=== PATIENT | male | born 1935 | race Caucasian/White ===

== ENCOUNTER → 2016-08-21 | Outpatient (CLI) | payer MEDICARE, OTHER | END | disposition home or self-care (01) | LOC: GT 08:27 | PROVIDERS: ATTEND Internal Medicine | DX: E11.9 Type 2 diabetes mellitus without complications (principal); D51.9 Vitamin B12 deficiency anemia, unspecified; N18.9 Chronic kidney disease, unspecified ==

== ENCOUNTER 2016-08-24 18:08 | Inpatient (IN) | payer MEDICARE, OTHER ==
[2016-08-24] MEDS ORDERED: SODIUM CHLORIDE 0.9% 1000ML 1,000 ML IVS ONE (18:29)
--- NOTE | 2016-08-24 18:32 | ED.PDOC ---
History of Present Illness - General Source: RN notes reviewed, Vital Signs reviewed, EMS notes reviewed, family, [facility] Exam Limitations: clinical condition - History of Present Illness Initial Comments: Per patient c/o SOB to nurse [facility]. EMS suctioned him and gave Zofran and he seems better. 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 Timing/Duration: 1 hour Severity: moderate Activities at Onset: rest Possible Cause: unknown cause - ? aspiration Improving Factors: medication, other - suctioning Worsening Factors: nothing Associated Symptoms: denies symptoms Respiratory Risk Factors: other - deteriorating respiratory frunction <Norma Valencia - Last Filed: 08/24/16 18:41> <Kerrie Jacques - Last Filed: 08/24/16 21:30> - General Chief Complaint: Respiratory Problem Stated Complaint: SOB Time Seen by Provider: 08/24/16 18:29 - History of Present Illness Allergies/Adverse Reactions: Allergies NO KNOWN ALLERGY Allergy (Verified 08/24/16 18:53) Home Medications: Ambulatory Orders Allopurinol [Zyloprim] 100 mg PO DAILY 09/27/15 Carvedilol 12.5 mg PO BID 09/27/15 Clopidogrel Bisulfate [Plavix] 75 mg PO 1700 09/27/15 Cyanocobalamin [Vitamin B12] 500 mcg PO DAILY 09/27/15 Donepezil Hydrochloride [Aricept] 10 mg PO BEDTIME 09/27/15 Ezetimibe [Zetia] 10 mg PO DAILY 09/27/15 Ferrous Sulfate [Iron] 65 mg PO BID 09/27/15 Finasteride 5 mg PO DAILY 09/27/15 Furosemide [Lasix] 40 mg PO BID 09/27/15 Hydrochlorothiazide 12.5 mg PO DAILY 09/27/15 Isosorbide Mononitrate 10 mg PO DAILY 09/27/15 Levothyroxine Sodium 25 mcg PO DAILY 09/27/15 Magnesium Oxide 800 mg PO BID 09/27/15 Memantine HCl [Namenda] 10 mg PO BID 09/27/15 Mirtazapine [Remeron] 15 mg PO BEDTIME 09/27/15 Multiple Vitamins W/ Iron [Multi-Vitamins/Iron] 1 tab PO DAILY 09/27/15 Pantoprazole Sodium [Protonix] 40 mg PO DAILY 09/27/15 Potassium Chloride Elixir [Kaochlor Liquid] 30 ml PO DAILY 09/27/15 Simvastatin 40 mg PO BEDTIME 09/27/15 Spironolactone 50 mg PO DAILY 09/27/15 busPIRone HCL [Buspar] 5 mg PO TID 09/27/15 Glipizide 5 mg PO BID 09/29/15 Linagliptin [Tradjenta] 5 mg PO DAILY 09/29/15 Insulin Glargine [Lantus Solostar] 20 unit SC DAILY #1 09/30/15 Insulin Lispro [Humalog] See Protocol SUBCU ACHS #1 pen 09/30/15 HYDROcodone 7.5MG/APAP 325MG [[place] 7.5/325] 1 - 2 tab PO Q6H PRN 12/01/15 Polyethylene Glycol 3350 [Miralax] 17 gm PO DAILY 12/01/15 Sulindac 200 mg PO BID #20 tab 12/01/15 Review of Systems - Review of Systems Constitutional: States: malaise, weakness. Denies: chills, diaphoresis, fever EENTM: States: no symptoms reported Respiratory: States: see HPI, cough, short of breath. Denies: orthopnea, stridor, wheezing Cardiology: States: no symptoms reported. Denies: chest pain Gastrointestinal/Abdominal: States: nausea. Denies: abdominal pain, constipation, diarrhea, vomiting Genitourinary: States: no symptoms reported Musculoskeletal: States: no symptoms reported Skin: States: no symptoms reported Neurological: States: other - decreased alertness and altered mental status for several weeks. Endocrine: States: no symptoms reported Hematologic/Lymphatic: States: no symptoms reported <Norma Valencia - Last Filed: 08/24/16 18:41> Past Medical History (General) - Patient Medical History Hx Seizures: No Hx Stroke: No Hx Dementia: Yes Hx Cardiac Disorders: Yes - [place] Hx Congestive Heart Failure: No Hx Pacemaker: No Hx Hypertension: Yes Hx Diabetes: Yes Hx Gastroesophageal Reflux: Yes Hx MRSA: No - Vaccination History Hx Influenza Vaccination: Yes - 2015 - Social History Hx Tobacco Use: Yes Hx Alcohol Use: No Hx Substance Use: No Hx Physical Abuse: No Hx Emotional Abuse: No <Norma Valencia - Last Filed: 08/24/16 18:41> Family Medical History - Family History Father Living Status: Hx Cardiac Disease: Yes - [place] <Norma Valencia - Last Filed: 08/24/16 18:41> Physical Exam - Physical Exam General Appearance: Emaciated, Frail, No apparent distress, Lethargic Neck: non-tender, full range of motion, supple, normal inspection Respiratory: no respiratory distress, no accessory muscle use, decreased breath sounds - throughout, other - Palpable mass R upper chest Cardiovascular/Chest: regular rate, rhythm, no edema, no gallop, no JVD, no murmur Peripheral Pulses: dorsalis pedis,right: 1+, dorsalis pedis,left: 1+ Gastrointestinal/Abdominal: normal bowel sounds, non tender, soft, no organomegaly, no pulsatile mass Extremity: normal inspection, no pedal edema Neurologic: disoriented x 3 Skin Exam: normal color, warm/dry <Norma Valencia - Last Filed: 08/24/16 18:41> Progress - Progress Progress: 08/24/16 18:41 Discussed situation with and daughter. Will do labs to look for an acute fixable problem but they do not want a chest CT or heroic measures. <Norma Valencia - Last Filed: 08/24/16 18:41> - Progress Progress: 08/24/16 20:34 I discussed Patient's UTI and hypercalcemia with Patient's and daughter. I suggested admission for treatment of the UTI and hypercalcemia with referral to hospice at some point. They agree with the plan. Dr. Fitch was called and we discussed Patient's treatment. We will get a CXR so that we can see where Patient stands with the lung mass. Will initially treat him with Rocephin after blood cultures drawn and fluids. Patient was given some ativan because he is very restless and I believe it will help this along with the SOB. - Results/Orders Results/Orders: 08/24/16 08/24/16 08/24/16 18:10 18:53 19:08 Temperature 96.8 F L Pulse Rate [ 92 H 100 H 100 H Left Radial] Respiratory 20 20 20 Rate Blood Pressure 109/76 116/64 108/47 [Left Arm] O2 Sat by Pulse 87 L 92 L 92 L Oximetry 08/24/16 08/24/16 20:00 20:18 Temperature 96.8 F L Pulse Rate [ 85 85 Left Radial] Respiratory 20 20 Rate Blood Pressure 138/85 138/85 [Left Arm] O2 Sat by Pulse 92 L 92 L Oximetry 08/24/16 18:00 B-TYPE NATRIURETIC PEPTIDE/BNP Stat MAGNESIUM Stat PHOSPHOROUS Stat 08/24/16 19:35 URINE CULTURE W/COLONY COUNT Stat 08/24/16 20:23 LACTIC ACID Stat cefTRIAXone SODIUM [Rocephin] 1 gm Sodium Chl 0.9% 50Ml Min-Bag+ [NS 50ml MINI -BAG+] 50 ml IVPB ONCE BLOOD CULTURE Stat 08/24/16 20:33 Sodium Chl 0.9% 50Ml Min-Bag+ [NS 50ml MINI-BAG+] 50 ml IVPB .STK-MED 08/24/16 19:35 URINE CULTURE W/COLONY COUNT Stat 08/24/16 20:40 BLOOD CULTURE Stat 08/24/16 21:16 KCl 20 Meq/Ns [NS W/ KCL 20 meq/Liter] 1,000 ml IVS ONCE Laboratory Results WBC 18.9 K/mm3 (4.8-10.8) H 08/24/16 18:00 RBC 5.88 M/mm3 (4.70-6.10) 08/24/16 18:00 Hgb 16.3 gm/dL (14.0-18.0) 08/24/16 18:00 Hct 50.9 % (42.0-52.0) 08/24/16 18:00 MCV 86.6 fl (80.0-94.0) 08/24/16 18:00 MCH 27.7 pg (27.0-31.0) 08/24/16 18:00 MCHC 32.0 g/dL (33.0-37.0) L 08/24/16 18:00 RDW 14.8 % (11.5-14.5) H 08/24/16 18:00 Plt Count 295 K/mm3 (130-400) 08/24/16 18:00 MPV 7.6 fl (7.40-10.4) 08/24/16 18:00 Absolute Neuts (auto) 15.30 K/uL (1.8-6.8) H 08/24/16 18:00 Absolute Lymphs (auto) 1.60 K/uL (1.0-3.4) 08/24/16 18:00 Absolute Monos (auto) 1.90 K/uL (0.2-0.8) H 08/24/16 18:00 Absolute Eos (auto) 0.00 K/uL (0.0-0.4) 08/24/16 18:00 Absolute Basos (auto) 0.00 K/uL (0.0-0.1) 08/24/16 18:00 Neutrophils % 81.1 % (42.0-78.0) H 08/24/16 18:00 Lymphocytes % 8.7 % (20.0-50.0) L 08/24/16 18:00 Monocytes % 9.9 % (2.0-9.0) H 08/24/16 18:00 Eosinophils % 0.1 % (1.0-5.0) L 08/24/16 18:00 Basophils % 0.2 % (0.0-2.0) 08/24/16 18:00 Sodium 155 mmol/L (135-145) H 08/24/16 20:40 Potassium 3.4 mmol/L (3.6-5.0) L 08/24/16 20:40 Chloride 110 mmol/L (101-111) 08/24/16 20:40 Carbon Dioxide 30 mmol/L (21-31) 08/24/16 20:40 Anion Gap 18.4 (12-18) H 08/24/16 20:40 BUN 98 mg/dL (7-18) H 08/24/16 20:40 Creatinine 2.58 mg/dL (0.6-1.3) H 08/24/16 20:40 BUN/Creatinine Ratio 38.0 (10-20) H 08/24/16 20:40 Random Glucose 149 mg/dL (70-105) H 08/24/16 20:40 Serum Osmolality 340.6 mOsm/L (275-295) H* 08/24/16 20:40 Lactic Acid 2.9 mmol/L (0.5-2.2) H* 08/24/16 20:40 Calcium 14.9 mg/dL (8.4-10.2) H* 08/24/16 20:40 Phosphorus 5.3 mg/dL (2.5-4.6) H 08/24/16 18:00 Magnesium 2.4 mg/dL (1.8-2.5) 08/24/16 18:00 Total Bilirubin 1.6 mg/dL (0.2-1.0) H 08/24/16 18:00 AST 22 IU/L (10-42) 08/24/16 18:00 ALT 17 IU/L (10-60) 08/24/16 18:00 Alkaline Phosphatase 90 IU/L (42-121) 08/24/16 18:00 B-Natriuretic Peptide 190.0 pg/ml (0-100) H 08/24/16 18:00 Serum Total Protein 8.5 gm/dL (6.4-8.2) H 08/24/16 18:00 Albumin 3.9 g/dl (3.2-5.5) 08/24/16 18:00 Globulin 4.6 gm/dL (2.3-3.5) H 08/24/16 18:00 Albumin/Globulin Ratio 0.8 (1.1-1.9) L 08/24/16 18:00 Urine Color Yellow (Yellow) 08/24/16 19:35 Urine Appearance Turbid (Clear) 08/24/16 19:35 Urine pH 5.0 (4.5-7.8) 08/24/16 19:35 Ur Specific [place] 1.025 (1.005-1.030) 08/24/16 19:35 Urine Protein Trace mg/dL 08/24/16 19:35 Urine Glucose (UA) Negative mg/dL (Negative) 08/24/16 19:35 Urine Ketones Negative mg/dL (NEGATIVE) 08/24/16 19:35 Urine Blood Moderate (Negative) H 08/24/16 19:35 Urine Nitrite Negative 08/24/16 19:35 Urine Bilirubin Small (NEGATIVE) H 08/24/16 19:35 Urine Urobilinogen 1.0 mg/dL (0.2-1.0) 08/24/16 19:35 Ur Leukocyte Esterase Large (Negative) H 08/24/16 19:35 Urine RBC Obscured by wbc's /hpf H 08/24/16 19:35 Urine WBC Tntc /hpf H 08/24/16 19:35 Ur Epithelial Cells Obscured by wbc's /hpf 08/24/16 19:35 Urine Bacteria Obscured by wbc's H 08/24/16 19:35 Chest x-ray: 1. Enlarging mass density, right upper lobe and apex with increased pleural thickening. No definite posterior right rib destruction. Correlate with history and interval lung imaging since September 2015. Cannot exclude underlying infectious process. Chronic bilateral lung interstitial process. Improved volume in the left lung. 2. Cardiomegaly but pulmonary vascularity is not congested. <Kerrie Jacques - Last Filed: 08/24/16 21:30> Departure <Norma Valencia - Last Filed: 08/24/16 18:41> - Departure Time of Disposition: 21:29 <Kerrie Jacques - Last Filed: 08/24/16 21:30> - Departure Clinical Impression: Dehydration, moderate, Hypercalcemia, Hypernatremia, Lung mass, Renal insufficiency Urinary tract infection Qualifiers: Urinary tract infection type: site unspecified Hematuria presence: with hematuria Qualifier Code: (N39.0) Urinary tract infection, site not specified Disposition: Admit Patient Condition: Poor Departure Forms: ED Discharge - Pt. Copy, Patient Portal Self Enrollment Home Medications: Ambulatory Orders Allopurinol [Zyloprim] 100 mg PO DAILY 09/27/15 Carvedilol 12.5 mg PO BID 09/27/15 Clopidogrel Bisulfate [Plavix] 75 mg PO 1700 09/27/15 Cyanocobalamin [Vitamin B12] 500 mcg PO DAILY 09/27/15 Donepezil Hydrochloride [Aricept] 10 mg PO BEDTIME 09/27/15 Ezetimibe [Zetia] 10 mg PO DAILY 09/27/15 Ferrous Sulfate [Iron] 65 mg PO BID 09/27/15 Finasteride 5 mg PO DAILY 09/27/15 Furosemide [Lasix] 40 mg PO BID 09/27/15 Hydrochlorothiazide 12.5 mg PO DAILY 09/27/15 Isosorbide Mononitrate 10 mg PO DAILY 09/27/15 Levothyroxine Sodium 25 mcg PO DAILY 09/27/15 Magnesium Oxide 800 mg PO BID 09/27/15 Memantine HCl [Namenda] 10 mg PO BID 09/27/15 Mirtazapine [Remeron] 15 mg PO BEDTIME 09/27/15 Multiple Vitamins W/ Iron [Multi-Vitamins/Iron] 1 tab PO DAILY 09/27/15 Pantoprazole Sodium [Protonix] 40 mg PO DAILY 09/27/15 Potassium Chloride Elixir [Kaochlor Liquid] 30 ml PO DAILY 09/27/15 Simvastatin 40 mg PO BEDTIME 09/27/15 Spironolactone 50 mg PO DAILY 09/27/15 busPIRone HCL [Buspar] 5 mg PO TID 09/27/15 Glipizide 5 mg PO BID 09/29/15 Linagliptin [Tradjenta] 5 mg PO DAILY 09/29/15 Insulin Glargine [Lantus Solostar] 20 unit SC DAILY #1 09/30/15 Insulin Lispro [Humalog] See Protocol SUBCU ACHS #1 pen 09/30/15 HYDROcodone 7.5MG/APAP 325MG [[place] 7.5/325] 1 - 2 tab PO Q6H PRN 12/01/15 Polyethylene Glycol 3350 [Miralax] 17 gm PO DAILY 12/01/15 Sulindac 200 mg PO BID #20 tab 12/01/15 Decision To Admit - Decistion To Admit Decision to Admit Date: 08/24/16 Decision to Admit Time: 20:32 <Kerrie Jacques - Last Filed: 08/24/16 21:30>
[2016-08-24] MEDS ORDERED: cefTRIAXone SODIUM 1 GM in SODIUM CHL 0.9% 50ML MIN-BAG+ 50 ML IVPB ONE (20:23)
[2016-08-24] MEDS ORDERED: cefTRIAXone SODIUM 1 GM VIAL ONE (20:33)
[2016-08-24] MEDS ORDERED: SODIUM CHL 0.9% 50ML MIN-BAG+ 50 ML IVPB ONE (20:33)
--- NOTE | 2016-08-24 21:02 | HP ---
HISTORY OF PRESENT ILLNESS: This 81 year-old white male is admitted to the hospital from [facility] where he has been a resident for a number of years. He presents to the Emergency Room with significant shortness of breath having been [facility]. He has had increasing shortness of breath, cough worsening for several days. His family is active in assisting with his ongoing care. In the Emergency Room he was found to have what appeared to be an enlarging mass in the right upper lobe of his lung which the family requests nothing specifically be done for. The patient's general condition, ability to eat, drink, communicate, walk and care for himself has significantly been decreasing over the last several weeks and months. At the time of his presentation, the patient was not able to communicate when asked questions. His family also was not present at the time of the initial intake, yet will be communicated with as we can after the patient has been admitted for stabilization and ongoing treatment for a significant illness. It is our understanding that he is a Do Not Resuscitate and the family has also voiced a wish for possible hospice intervention to assist with the ongoing care. In the Emergency Room he was found to have evidence of a urinary tract infection with very elevated white count of almost 19,000 with elevated calcium, hyperosmolar state and with a right upper lobe lung mass described. The patient has chronic diabetes and is on Levemir insulin. PAST MEDICAL HISTORY: 1 History of renal insufficiency. The patient is unable to contribute to his past history. Review of the chart did reveal an episode of significant hyperosmolar state in the past year, in September 2015. PAST SURGICAL HISTORY: Unknown. CURRENT MEDICATIONS: Please refer to nurses notes for a list of verified home medications taken by the [facility] at the [facility]. ALLERGIES: NONE KNOWN. FAMILY HISTORY: Elevated sugar or diabetes in the father. SOCIAL HISTORY: The patient has worked as an maintenance electrician in the [employer] and he has smokes a pack of cigarettes per day in the past. REVIEW OF SYSTEMS: GENERAL: Some weight loss recently. Otherwise, unable to get any significant response out of the patient at this time to contribute to his history. PHYSICAL EXAMINATION: VITAL SIGNS: Afebrile. Pulse 96, blood pressure 127/80, respirations 20, pulse oximetry 98% on nasal cannula. Weight 57.5 kilos. GENERAL: The patient is unable to fully answer questions, though he is able to say yes or no appropriately to some of the questions. He is very pale, very poorly responsive. When offered the nutrients or fluids to take, he refuses to suck out of a straw or even eat when offered by a spoon. Special nutritional support will be a challenge. CHEST: Diminished breath sounds bilaterally. CARDIOVASCULAR: Heart tones somewhat distant, yet seem to be regular. ABDOMEN: Soft with no organomegaly or masses with fairly good bowel tones noted. EXTREMITIES: SCDs are in place with muscle tone otherwise decreased with fairly good range of motion noted. NEUROLOGIC: No focal neurological deficits, though the patient is having difficulty to communicate and is quite obtunded, having difficulty swallowing with no evidence of choking during the exam. LABORATORY: White count elevated at 18,900 with 81% neutrophils, hemoglobin 16.3. Chemistries show sodium elevated at 155, potassium low at 3.4, BUN very elevated compared to normal at 98 with creatinine 2.58 and glucose 149. Serum osmolality increased at 340 and calcium increased at 16.5. Phosphorus elevated at 5.3, magnesium normal at 2.4, bilirubin 1.6, liver enzymes normal. Beta natriuretic peptide 190, albumin 3.9. Urinalysis showed some hematuria, pyuria and bacteruria. Blood culture as well as urine culture pending. History of a Staphylococcus warneri a year ago in the urine. Chest x-ray does reveal evidence of what appears to be a right upper lobe mass density with chronic interstitial process noted and cardiomegaly without congestive heart failure at this time. ASSESSMENT: 1. Acute urinary tract infection with elevated lactic acid suggesting the possibility to rule out sepsis with the patient started on parenteral therapy for support. 2. Advanced and enlarging lung mass with the appearance of possible squamous cell with the family wishing no specific treatment at this time. 3. Severe elevated hypercalcemia possibly secondary to lung cancer such as squamous cell with elevated parahormone level secretion. 4. Diabetes mellitus insulin therapy, will have to adjust medications. 5. Hyperosmolar state present with hypernatremia. 6. Dehydration contributing to the hyperosmolar state. 7. Acute renal failure with significant worsening BUN and creatinine. 8. Hypokalemia requiring supplementation. 9. Hypoxemia with saturation 87% on room air. 10. Possible pneumonia in right upper lobe requiring parenteral therapy and close followup. 11. Soft tissue firm mass in upper aspect of anterior right chest well requiring correlation with chest film findings. 12. Leukocytoses with white count of 19,000, possibly secondary to underlying urinary tract infection. 13. Not eating with significant weight loss. 14. Chronic dementia showing worsening debility. 15. History of hyperlipidemia with fatty infiltration, especially involving the medial aspect of the left eye. PLAN: The patient is admitted for initiation of parenteral therapy with hydration with sodium bicarb and D5W to assist in preventing excessive intake, yet at the same time trying to help support renal function to improve. Close followup is necessary. Decreased diuresis previously taken but will reintroduce tomorrow after fluids have been given overnight to a lower level. Close followup with condition very severe. Continue evaluation. #[id number] [facility]
[2016-08-24] MEDS ORDERED: KCL 20 MEQ/NS 1,000 ML IVS ONE (21:16)
--- NOTE | 2016-08-24 21:18 | RAD ---
EXAM DESCRIPTION: Chest,1 View CLINICAL HISTORY: Cough/SOB COMPARISON: Portable chest x-ray 09/28/2015. TECHNIQUE: AP portable taken at 2053 hours, upright position. FINDINGS: Breast density in the right apex has enlarged since the prior study. Also right apical pleural thickening. Prominent interstitial markings in both lungs again noted. Revisualization of the left base. No pleural effusion or pneumothorax. Heart size remains enlarged. Pulmonary vascularity is not increased. Mediastinum is showing no widening with sternotomy wires. Atherosclerotic calcifications of aorta with tortuosity. Decreased bone density. No definite posterior right rib destruction abutting the mass. IMPRESSION: 1. Enlarging mass density, right upper lobe and apex with increased pleural thickening. No definite posterior right rib destruction. Correlate with history and interval lung imaging since September 2015. Cannot exclude underlying infectious process. Chronic bilateral lung interstitial process. Improved volume in the left lung. 2. Cardiomegaly but pulmonary vascularity is not congested. Electronically signed by: Howie Esparza MD 08/24/2016 9:17 PM CDT
[2016-08-24] MEDS ORDERED: DEXTROSE 50% 25 GM/50 ML SYG IV PRN (21:32)
[2016-08-24] MEDS ORDERED: LEVALBUTEROL NEBS 1.25 MG/3 ML VIAL NEB PRN (21:32)
[2016-08-24] MEDS ORDERED: GLUCAGON INJ 1 MG VIAL SUBCU PRN (21:32)
[2016-08-24] MEDS ORDERED: ONDANSETRON INJ 4 MG/2 ML VIAL IV PRN (21:32)
[2016-08-24] MEDS ORDERED: MAGNESIUM HYDROXIDE 30 ML UD PO PRN (21:32)
[2016-08-24] MEDS ORDERED: HYDROcodone 5MG/APAP 325MG 1 EA TAB PO PRN (21:32)
[2016-08-24] MEDS ORDERED: LORazepam 0.5 MG TAB PO PRN (21:46)
[2016-08-24] MEDS ORDERED: POTASSIUM CHLORIDE 10 MEQ TAB PO SCH (22:00)
[2016-08-24] MEDS ORDERED: glipiZIDE 5 MG TAB PO SCH (22:00)
[2016-08-24] MEDS ORDERED: IPRATROPIUM/ALBUTEROL 3 ML VIAL INH SCH (22:00)
[2016-08-24] MEDS ORDERED: SODIUM BICARBONATE VIAL 50 MEQ/50 ML VIAL ONE (22:24)
[2016-08-24] MEDS ORDERED: DEXTROSE 5% 1000ML 1,000 ML IVS ONE (22:24)
[2016-08-24] MEDS: SODIUM BICARBONATE VIAL 50 MEQ in DEXTROSE 5% 1000ML 1,000 ML IVS PRN (22:28)
[2016-08-24] MEDS: SODIUM CHLORIDE 0.9% (FLUSH) 10 ML SYG IV PRN (22:29)
[2016-08-24] MEDS: predniSONE 10 MG TAB PO SCH (22:30)
[2016-08-24] MEDS: IV SET AND CAP CHANGE INJ INJ SCH (22:30)
[2016-08-24] MEDS: AZITHROMYCIN 250 MG TAB PO SCH (22:30)
[2016-08-25] MEDS: OMEPRAZOLE CAP 20 MG CAP PO SCH (06:22)
--- NOTE | 2016-08-25 06:50 | RAD ---
Clinical History : Pneumonia , MAIN Exam : Portable AP view of the chest 08/25/2016 7:00 AM CDT Comparisons : Portable AP view of the chest August 24, 2016 Findings : There is a stable right upper lobe airspace opacity measuring 5 cm in diameter with surrounding ground glass opacity. There is patchy retrocardiac airspace disease. The heart is stable in size. The mediastinal contours are normal in appearance. There are vascular calcifications along the aortic arch. The patient is status post sternotomy and CABG. The thoracic spine is age appropriate. The shoulders are unremarkable. Limited evaluation of the upper abdomen demonstrates no gross abnormalities. Impression: 1. Stable right upper lobe airspace opacity with surrounding groundglass changes. Correlation with the patient's history is recommended. Further evaluation with CT would likely be beneficial. 2. Increasing patchy retrocardiac airspace disease. Electronically signed by: Madelaine Wright MD 08/25/2016 6:50 AM CDT
[2016-08-25] MEDS: INSULIN LISPRO 100 UNITS/ML PEN SUBCU SCH ×4 (07:22→21:30)
[2016-08-25] MEDS ORDERED: KCL 20MEQ/WATER FOR INJ 100ML 20 MEQ in PREMIX BAG 1 BAG IVPB ONE (07:39)
[2016-08-25] MEDS ORDERED: SODIUM CHLORIDE 0.9% 10 ML VIAL IV PRN (07:54)
[2016-08-25] MEDS ORDERED: cefTRIAXone SODIUM 1 GM VIAL ONE ×2 (08:12→19:45)
[2016-08-25] MEDS ORDERED: SODIUM CHL 0.9% 50ML MIN-BAG+ 50 ML IVPB ONE ×2 (08:12→19:45)
[2016-08-25] MEDS: cefTRIAXone SODIUM 1 GM in SODIUM CHL 0.9% 50ML MIN-BAG+ 50 ML IVPB SCH ×2 (08:15→19:54)
[2016-08-25] MEDS: IPRATROPIUM/ALBUTEROL 3 ML VIAL NEB SCH ×4 (08:16→20:15)
[2016-08-25] MEDS ORDERED: ISOSORBIDE MONONITRATE 10 MG PO SCH (09:00)
[2016-08-25] MEDS ORDERED: FINASTERIDE 5 MG TAB PO SCH (09:00)
[2016-08-25] MEDS ORDERED: DEXTROSE 5% 1000ML 1,000 ML IVS ONE ×2 (09:06→19:38)
[2016-08-25] MEDS ORDERED: SODIUM BICARBONATE VIAL 50 MEQ/50 ML VIAL ONE ×2 (09:07→19:38)
[2016-08-25] MEDS: SODIUM BICARBONATE VIAL 50 MEQ in DEXTROSE 5% 1000ML 1,000 ML IVS PRN ×2 (09:15→19:53)
[2016-08-25] MEDS ORDERED: KCL 20MEQ/WATER FOR INJ 100ML 100 ML IVPB ONE (09:21)
[2016-08-25] MEDS: SPIRONOLACTONE 25 MG TAB PO SCH (09:41)
[2016-08-25] MEDS: CARVEDILOL 12.5 MG TAB PO SCH ×2 (09:42→21:32)
[2016-08-25] MEDS: POLYETHYLENE GLYCOL 3350 17 GM PCKT PO SCH (09:42)
[2016-08-25] MEDS: LINAGLIPTIN 5 MG TAB PO SCH (09:43)
[2016-08-25] MEDS: MEMANTINE 10 MG TAB PO SCH ×2 (09:43→21:31)
[2016-08-25] MEDS: predniSONE 10 MG TAB PO SCH (09:43)
[2016-08-25] MEDS: INSULIN DETEMIR 100 UNITS/ML PEN SUBCU SCH (09:51)
[2016-08-25] MEDS: FUROSEMIDE INJ 20 MG/2 ML VIAL IV SCH ×2 (09:51→16:51)
--- NOTE | 2016-08-25 13:09 | PN ---
DATE: 08/25/16 SUBJECTIVE: The patient is lying in the bed with the head elevated. He is not able to communicate much at all. When offered food by spoon or Boost by straw, he refuses. Will continue to offer and hopefully as treatment course continues, he will become more responsive and more able to consume nutrition and fluids. No significant shortness of breath at this time. OBJECTIVE: VITAL SIGNS: Afebrile. Pulse 66, blood pressure 119/78, respirations 18, pulse oximetry 97% on nasal cannula, 2 liters. Weight is fairly stable. LUNGS have diminished breath sounds. HEART tones are regular, fairly slow. ABDOMEN is slightly distended though fairly good bowel tones, non-tender, no organomegaly noted. EXTREMITIES SCDs in place. DECREASED muscle tone. CHEST wall exam does reveal soft tissue rounded mass palpated with no evidence of significant tenderness evident. Whether this is contributing to the appearance of a right upper lobe mass will be determined by taking lateral chest wall to look at the lungs as well as the mass itself. Repeat urinalysis showed marked improvement with pyuria, still with some rare RBCs. Cultures show no growth on MRSA surveillance. Urine culture still pending. Blood cultures are negative. Initial urine culture showed no growth at 24 hours but it was obtained after antibiotics were started. Cath specimen was performed. ASSESSMENT: 1. Acute urinary tract infection with elevated lactic acid suggesting the possibility to rule out sepsis with the patient started on parenteral therapy for support. 2. Advanced and enlarging lung mass with the appearance of possible squamous cell with the family wishing no specific treatment at this time. 3. Severe elevated hypercalcemia possibly secondary to lung cancer such as squamous cell with elevated parahormone level secretion. 4. Diabetes mellitus insulin therapy, will have to adjust medications. 5. Hyperosmolar state present with hypernatremia. 6. Dehydration contributing to the hyperosmolar state. 7. Acute renal failure with significant worsening BUN and creatinine. 8. Hypokalemia requiring supplementation. 9. Hypoxemia with saturation 87% on room air. 10. Possible pneumonia in right upper lobe requiring parenteral therapy and close followup. 11. Soft tissue firm mass in upper aspect of anterior right chest well requiring correlation with chest film findings. 12. Leukocytoses with white count of 19,000, possibly secondary to underlying urinary tract infection. 13. Not eating with significant weight loss. 14. Chronic dementia showing worsening debility. 15. History of hyperlipidemia with fatty infiltration, especially involving the medial aspect of the left eye. PLAN: We will continue close observation and encourage nutritional support and fluid intake. Continue to adjust insulin to help control diabetes. Still awaiting discussion with family as to specific plans as far as resuscitation options and hospice. Social Service will discuss with the family in the morning , options for hospice to assist with ongoing care. Close observation. Condition serious. #[id number] [facility]
--- NOTE | 2016-08-25 13:12 | RAD ---
PROCEDURE: XR CHEST 1 VIEW HISTORY: Rt Chest mass COMPARISON: Chest x-ray and frontal projection done on the same day at 6:11 AM TECHNIQUE: Single lateral projection of the chest was done. FINDINGS: Lobulated mass in the right lung apex is again noted on this single lateral projection of the chest. There is vascular congestion. There is presence of a hiatal hernia There is no pleural effusion. The cardiomediastinal silhouette is stable . IMPRESSION: Lobulated mass in the right lung apex is again noted on this single lateral projection of the chest. There is vascular congestion. There is a moderate size hiatal hernia Electronically signed by: Rolf Cortes MD 08/25/2016 1:12 PM CDT
[2016-08-25] MEDS: LEVOTHYROXINE SODIUM 0.025 MG TAB PO SCH (13:45)
[2016-08-25] MEDS: POTASSIUM CHLORIDE 10 MEQ TAB PO SCH ×2 (13:45→17:02)
[2016-08-25] MEDS: glipiZIDE 5 MG TAB PO SCH (17:01)
[2016-08-25] MEDS: CLOPIDOGREL 75 MG TAB PO SCH (17:02)
[2016-08-25] MEDS: MIRTAZAPINE 15 MG TAB PO SCH (21:31)
[2016-08-25] MEDS: DONEPEZIL HCL 5 MG TAB PO SCH (21:34)
[2016-08-25] MEDS ORDERED: SODIUM CHLORIDE 0.9% 250ML 250 ML ONE (22:13)
[2016-08-25] MEDS ORDERED: AZITHROMYCIN IV 500 MG VIAL IVPB ONE (22:14)
[2016-08-25] MEDS: SODIUM CHLORIDE 0.9% (FLUSH) 10 ML SYG IV PRN (22:19)
[2016-08-25] MEDS: AZITHROMYCIN IV 500 MG in SODIUM CHLORIDE 0.9% 250ML 250 ML IVPB SCH (22:19)
[2016-08-25] MEDS: AZITHROMYCIN 250 MG TAB PO SCH (22:57)
[2016-08-26] MEDS: OMEPRAZOLE CAP 20 MG CAP PO SCH (06:36)
[2016-08-26] MEDS: LEVOTHYROXINE SODIUM 0.025 MG TAB PO SCH (06:37)
[2016-08-26] MEDS: glipiZIDE 5 MG TAB PO SCH ×2 (06:39→18:54)
[2016-08-26] MEDS ORDERED: KCL 40 MEQ/WATER FOR INJECTION 40 MEQ in PREMIX BAG 1 BAG IVPB ONE (06:49)
[2016-08-26] MEDS ORDERED: SODIUM CHL 0.9% 50ML MIN-BAG+ 50 ML IVPB ONE ×2 (08:14→19:22)
[2016-08-26] MEDS ORDERED: cefTRIAXone SODIUM 1 GM VIAL ONE ×2 (08:15→19:23)
[2016-08-26] MEDS ORDERED: KCL 40 MEQ/WATER FOR INJECTION 100 ML IVPB ONE (08:16)
[2016-08-26] MEDS: cefTRIAXone SODIUM 1 GM in SODIUM CHL 0.9% 50ML MIN-BAG+ 50 ML IVPB SCH ×2 (08:26→19:37)
[2016-08-26] MEDS: SODIUM CHLORIDE 0.9% (FLUSH) 10 ML SYG IV PRN (08:27)
[2016-08-26] MEDS: INSULIN LISPRO 100 UNITS/ML PEN SUBCU SCH ×4 (08:32→21:26)
[2016-08-26] MEDS: POTASSIUM CHLORIDE 10 MEQ TAB PO SCH ×3 (08:32→18:55)
[2016-08-26] MEDS ORDERED: DEXTROSE 5% 1000ML 1,000 ML IVS ONE ×2 (08:59→19:30)
[2016-08-26] MEDS ORDERED: SODIUM BICARBONATE VIAL 50 MEQ/50 ML VIAL ONE ×2 (08:59→19:31)
[2016-08-26] MEDS: IPRATROPIUM/ALBUTEROL 3 ML VIAL NEB SCH ×4 (09:30→20:22)
[2016-08-26] MEDS: SODIUM BICARBONATE VIAL 50 MEQ in DEXTROSE 5% 1000ML 1,000 ML IVS PRN ×2 (09:35→19:35)
[2016-08-26] MEDS: INSULIN DETEMIR 100 UNITS/ML PEN SUBCU SCH (09:43)
[2016-08-26] MEDS: FUROSEMIDE INJ 20 MG/2 ML VIAL IV SCH ×2 (09:45→18:55)
[2016-08-26] MEDS: POLYETHYLENE GLYCOL 3350 17 GM PCKT PO SCH (09:49)
[2016-08-26] MEDS: MEMANTINE 10 MG TAB PO SCH ×2 (09:49→21:27)
[2016-08-26] MEDS: CARVEDILOL 12.5 MG TAB PO SCH ×2 (09:49→21:27)
[2016-08-26] MEDS: predniSONE 10 MG TAB PO SCH (09:49)
[2016-08-26] MEDS: SPIRONOLACTONE 25 MG TAB PO SCH (09:49)
[2016-08-26] MEDS: LINAGLIPTIN 5 MG TAB PO SCH (09:50)
--- NOTE | 2016-08-26 09:58 | CT ---
EXAM DESCRIPTION: Chest w/o Contrast CLINICAL HISTORY: RUL mass-connected to Right chest wall mass? COMPARISON: Chest x-ray August 24, 2016 TECHNIQUE: Noncontrast transaxial CT images of the chest are obtained. CT scan done according to ALARA (As Low As Reasonably Achievable). FINDINGS: The heart is enlarged. 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 Moderate calcified plaque of the thoracic aorta and great vessels is seen with tortuosity and diffuse ectasia of the thoracic aorta. Visualized portion of the upper abdomen shows an ill-defined low-attenuation area in the dome of the right lobe liver measuring 8 mm. There are also subtle less than 10 mm low-attenuation lesions in the left lobe of the liver not well identified. The adrenal glands are unremarkable. There is a large complex appearing cystic and probably partly solid mass in the posterior mid to upper pole left kidney incompletely visualized measuring at least 10.0 x 7.3 cm showing fluid attenuation posteriorly and soft tissue attenuation component anteriorly. The soft tissue component measures approximately 6.4 x 3.0 cm. Partly visualized cortical cyst of the lateral midpole right kidney measures 3.2 cm. There is a large soft tissue attenuation mass involving the chest wall of the medial right upper chest that measures at least 11.2 x 6.8 x 12.3 cm. This mass involves the upper sternum in the region of the manubrium and surrounds the entire right first rib and portions of the second rib. Diffuse bone destructive changes of the right first rib to the level of its articulation with the spine seen. Lesion also involves the right sternoclavicular joint extends towards the left. There is mass effect upon at least the right subclavian vein and probably artery. There is also some mass effect on the innominate vein. The mass contacts the ascending thoracic aortic arch proximal to the brachiocephalic artery. Bone destructive changes of the right transverse process of T1 is seen. There is also likely some involvement of bone destruction of the T1 vertebral body. No enlarged paratracheal or hilar lymph nodes are seen given the limitations of a noncontrast exam. No significant pleural or pericardial effusion is seen. No soft tissue mass may arise from and definitely involves portion of the anterior right upper lobe. There is consolidation with air bronchograms involving portions of the posterior right lower lobe with interstitial thickening in the left lower lobe. There are areas of pleural based calcification in the chest bilaterally with some areas of mild associated soft tissue pleural thickening. Remote appearing bilateral rib trauma is seen. Moderate to severe spondylitic changes of the spine are seen. There is lack of osseous union of the sternotomy. IMPRESSION: Large, aggressive appearing soft tissue mass involving the anterior right upper lobe and invading the chest wall with destruction of most of the right first rib and portions of the anterior right second rib, sternum, and medial right clavicle. This could represent primary bronchogenic carcinoma invading the chest wall. Tissue sampling is recommended. This bony destructive lesion extends towards the medial aspect of the right first clavicle and may extend into this region of the spinal canal. There is bone destruction of the right T1 transverse process of T1 vertebral body. Consider further evaluation with MRI of the thoracic spine. Pleural based calcified plaque in the chest bilaterally suggests previous asbestos exposure. 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 Several low-attenuation lesions measuring less than 1 cm are seen in the liver. These are indeterminate on noncontrast imaging. Consider further evaluation with postcontrast CT or MRI imaging. Interstitial changes in the lung bases could represent atelectasis versus pneumonia or aspiration especially in the right lower lobe. Electronically signed by: Koffi River MD 08/26/2016 9:57 AM CDT
--- NOTE | 2016-08-26 13:40 | PN ---
DATE: SUBJECTIVE: Today is the second day in the hospital. The patient is still significantly impaired. He is able to open his eyes an look at us, but is only poorly able to respond to questions. He is not taking medicines by mouth, nor is he consuming much by mouth. IV fluids are continuing. Evidence of urinary tract infection with treatment initiated with antibiotic therapy, showing some urinalysis clearing. Still not able to eat much at all and has significantly lost weight. OBJECTIVE: VITAL SIGNS: Afebrile. Pulse 74. Blood pressure 111/73. Pulse oximetry 97% with nasal cannula. Respiratory rate 18. Fluid intake has been adequate and output is 450 mL recently. Weight is stable as well. CHEST: Exam persists in showing the rounded, firm, soft tissue mass over the right upper anterior chest wall which is reminiscent of neoplastic involvement from the underlying lung cancer. In an attempt to rule out the soft tissue mass of the chest well contributing to the abnormal chest x-ray, a lateral chest was performed which unfortunately persisted in showing involvement of the right upper lobe with mass as well as the mass over the chest wall. Because of the significance of the underlying disease process, a CT scan was performed which showed contiguous spread of the pulmonary neoplasm to involve and destroying ribs and clavicle as well as compression on vessels of the upper chest with extension and involving the chest wall in a direct contact connection. CT scan also reveals a very large mass effect in the left kidney which again could be a source of neoplastic origin. Awaiting family input as we can discuss with them the degree that they wish us to treat and to biopsy as continued support is in progress. LABORATORY: White count is down to 12,500 with 77% neutrophils. Hemoglobin 13.5. Sodium 151, potassium 2.6, K-rider is initiated. BUN is down from 103 to 79 and creatinine is down from 2.49 to 1.92. Sugar fasting 172, osmolality 327, calcium down from 14.3 to 3.5 with hydration. Blood cultures are negative thus far as also is the urine culture, but it is of note that the urine culture was obtain after antibiotics were started. ASSESSMENT: 1. Advanced, enlarging lung mass, right upper lobe with extension through the chest wall to involve the anterior right upper chest wall anteriorly to involve both ribs, sternum and vascularity of the upper chest. Possible squamous cell with hormone effect causing the hypercalcemia, but also consider a kidney carcinoma from a left large renal mass. 2. Severe hypercalcemia, probably secondary to lung cancer with localized bony destruction documented on CT scan versus elevated parahormone level from a squamous cell or a renal cell carcinoma. 3. Diabetes mellitus insulin therapy, adjusting as required. 4. Hyperosmolar state present with hypernatremia, persisting. 5. Moderate dehydration, contributing to the hyperosmolar state with therapy to continue. 6. Acute renal failure with significant BUN and creatinine elevation, slowly improving with intravenous and bicarbonate support. 7. Hypokalemia, requiring supplementation. 8. Hypoxemia with low saturation requiring oxygen supplementation. 9. Possible pneumonia in right upper lobe on parenteral therapy. 10. Urinary tract infection with cultures negative, yet obtained after antibiotics initiated. 11. Leukocytosis, slowly improving. 12. Not eating with significant weight loss, possibly an end-stage severe cancer presentation. 13. Chronic dementia, worsening. 14. History of hyperlipidemia with fatty infiltration, especially involving the skin in the medial aspect of the left eye. PLAN: Social Service is discussing with the family the options of hospice care. The family may suggest care and comfort since the patient is not able to eat or drink, or at least not willing to at this time. Continue supportive care as the family and hospice continue with their decision process. Condition is terminal. #[id number] [facility]
--- NOTE | 2016-08-26 18:01 | CONS ---
DATE OF CONSULTATION: 08/26/16 REFERRING PHYSICIAN: Tr Fitch M.D. HISTORY OF PRESENT ILLNESS: the patient is an 81 year-old male who was admitted to the Emergency Room with leukocytosis and elevated calcium with increasing shortness of breath, weakness, cough and weight loss. A workup has revealed a right upper lobe lung mass and a right upper chest wall subcutaneous mass which on CT scan are one and the same. After discussion with Dr. Fitch , the family wishes me to consider obtaining a specimen of tissue to evaluate exactly the etiology of this problem even in the face of unlikely aggressive treatment. PAST MEDICAL HISTORY: 1. Renal insufficiency. 2. Diabetes. PAST SURGICAL HISTORY: Unknown. CURRENT MEDICATIONS: Please see the hospital medication list. ALLERGIES: NO KNOWN DRUG ALLERGIES. FAMILY HISTORY: Significant for diabetes. 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 Has smoked a pack a day in the past. REVIEW OF SYSTEMS: Unable to get a significant review of systems but he has apparently lost weight and become weaker. PHYSICAL EXAMINATION: VITAL SIGNS: Afebrile, respiratory rate 20. GENERAL: Reveals the patient to be sedated who responds, but goes right back to sleep. He does not seem to be in discomfort. HEENT: Reveals the sclera to be nonicteric. BACK: Without CVA tenderness. CHEST: He has a mildly tender subcutaneous mass with some overlying erythema to the right side of his previous median sternotomy scar. It is firm. No fluctuance. He has decreased breath sounds bilaterally. ABDOMEN: Soft and benign. LABORATORY: Today, potassium 2.6, creatinine 1.92, calcium is down to 13.5 from 19 on admission. Blood sugars are running in the 175s to 130s. Hemoglobin 13.5, white count is down to 12.5 and 172,000 platelets. Segmented neutrophil count is 77.6. CT scan and chest x-ray are consistent with a right upper lobe mass which has extended through the anterior chest wall into the subcutaneous tissue on the right. IMPRESSION: 1. Neoplasm of the right upper lobe. PLAN: His history as a [employer] boat hand could have exposed him to asbestos. He has also been a smoker. It is unlikely to be asbestos related, more likely to be primary squamous cell or large cell carcinoma of the lung. Also on the CT scan he was noted to have a lesion on his kidney and so you could not rule out metastatic renal cell carcinoma but once again this is less likely than a primary lung malignancy. The family has been discussed with Dr. Fitch about proceeding with a needle core biopsy versus an open biopsy. We will attempt a needle core biopsy under local anesthesia tomorrow morning. We will leave him on his Plavix continuously today. [facility][id number] [facility]
[2016-08-26] MEDS: CLOPIDOGREL 75 MG TAB PO SCH (18:55)
[2016-08-26] MEDS ORDERED: SODIUM CHLORIDE 0.9% 250ML 250 ML ONE (19:22)
[2016-08-26] MEDS ORDERED: PANTOPRAZOLE SODIUM TAB 40 MG PO ONE (19:22)
[2016-08-26] MEDS ORDERED: AZITHROMYCIN IV 500 MG VIAL IVPB ONE (19:23)
[2016-08-26] MEDS: MIRTAZAPINE 15 MG TAB PO SCH (21:27)
[2016-08-26] MEDS: DONEPEZIL HCL 5 MG TAB PO SCH (21:27)
[2016-08-26] MEDS: AZITHROMYCIN IV 500 MG in SODIUM CHLORIDE 0.9% 250ML 250 ML IVPB SCH (22:03)
[2016-08-27] MEDS ORDERED: DEXTROSE 5% 1000ML 1,000 ML IVS ONE (05:11)
[2016-08-27] MEDS ORDERED: SODIUM BICARBONATE VIAL 50 MEQ/50 ML VIAL ONE (05:12)
[2016-08-27] MEDS: PANTOPRAZOLE SODIUM TAB 40 MG PO SCH (06:14)
[2016-08-27] MEDS: LEVOTHYROXINE SODIUM 0.025 MG TAB PO SCH (06:14)
[2016-08-27] MEDS: glipiZIDE 5 MG TAB PO SCH ×2 (06:15→16:05)
[2016-08-27] MEDS ORDERED: cefTRIAXone SODIUM 1 GM VIAL ONE ×2 (07:07→20:06)
[2016-08-27] MEDS ORDERED: SODIUM CHL 0.9% 50ML MIN-BAG+ 50 ML IVPB ONE ×2 (07:07→20:06)
[2016-08-27] MEDS: INSULIN LISPRO 100 UNITS/ML PEN SUBCU SCH ×4 (07:23→22:20)
[2016-08-27] MEDS: POTASSIUM CHLORIDE 10 MEQ TAB PO SCH ×3 (07:32→16:05)
[2016-08-27] MEDS: cefTRIAXone SODIUM 1 GM in SODIUM CHL 0.9% 50ML MIN-BAG+ 50 ML IVPB SCH ×2 (07:33→20:11)
[2016-08-27] MEDS: SODIUM BICARBONATE VIAL 50 MEQ in DEXTROSE 5% 1000ML 1,000 ML IVS PRN (08:09)
[2016-08-27] MEDS: IPRATROPIUM/ALBUTEROL 3 ML VIAL NEB SCH ×4 (08:18→21:17)
[2016-08-27] MEDS: INSULIN DETEMIR 100 UNITS/ML PEN SUBCU SCH (08:25)
[2016-08-27] MEDS: CARVEDILOL 12.5 MG TAB PO SCH ×2 (08:26→21:04)
[2016-08-27] MEDS: SPIRONOLACTONE 25 MG TAB PO SCH (08:26)
[2016-08-27] MEDS: POLYETHYLENE GLYCOL 3350 17 GM PCKT PO SCH (08:27)
[2016-08-27] MEDS: predniSONE 10 MG TAB PO SCH (08:27)
[2016-08-27] MEDS: MEMANTINE 10 MG TAB PO SCH ×2 (08:27→21:05)
[2016-08-27] MEDS: LINAGLIPTIN 5 MG TAB PO SCH (08:27)
[2016-08-27] MEDS: FUROSEMIDE INJ 20 MG/2 ML VIAL IV SCH ×2 (08:28→16:41)
[2016-08-27] MEDS ORDERED: LIDOCAINE 1% 10 ML VIAL INJ ONE (09:22)
--- NOTE | 2016-08-27 09:26 | PCM.CORE ---
Physician DVT/VTE - Prophylaxis Currently: Patient already on anticoagulation therapy - Nurse DVT Assessment & Total Each Risk Factor Represents 3 Points: Age over 75 years, Medical PT with Hx of [place], CHF, Severe infection/sepsis Each Risk Factor Represents 2 Points: Malignancy (present/past) Each Risk Factor Represents 1 Point: Medical PT at Bed Rest Each Risk Factor is 1 Point: Serious Lung disease (pnemonia <1month, COPD, emphysema,etc) DVT Assessment Score: 10
[2016-08-27] MEDS: HYDROmorphone HCL INJ 2 MG/ML VIAL IV PRN ×2 (09:35→19:44)
[2016-08-27] MEDS ORDERED: SODIUM CHL 0.9% 250ML (AVIVA) 250 ML IVPB ONE (09:54)
[2016-08-27] MEDS ORDERED: VANCOMYCIN HCL INJ 1,000 MG VIAL IVPB ONE (09:54)
[2016-08-27] MEDS: ENOXAPARIN SODIUM 30 MG/0.3 ML SYG SUBCU SCH (10:11)
--- NOTE | 2016-08-27 10:34 | OP ---
DATE OF PROCEDURE: 08/26/16 PREOPERATIVE DIAGNOSIS: 1. Subcutaneous right chest wall mass with extension from the lung. POSTOPERATIVE DIAGNOSIS: 1. Subcutaneous right chest wall mass with extension from the lung. PROCEDURE: 1. Sonographically guided needle core biopsy, right chest wall mass. SURGEON: Pankaj Walter MD. HISTOLOGY TECHNICIAN: None. ANESTHESIA: Local infiltration of 1% lidocaine. INDICATION: The patient is an 81-year-old male who has been declining and lost weight. CT scan and chest x-ray reveal a mass in the right upper lobe that appears to extend through the anterior chest wall. There is also a question of a mass in the kidney. 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 FINDINGS: Three good cores were identified with the needle within the mass on ultrasound. PROCEDURE: The patient was placed in the supine. His head is turned to the left. Ultrasound was used to identify the mass in his chest wall lateral to the ultrasound device. It was prepped with Betadine. Towels were placed. Local infiltration of anesthesia was obtained with 1% lidocaine, then a 22 gauge needle was introduced into the mass. Aspiration was attempted without fluid. A stab wound was made with a #15 blade and the needle core biopsy device was introduced under ultrasound guidance three times. Three good cores were taken. Hemostasis was obtained with pressure and then a single suture of 4 -0 Prolene in the skin. Pressure dressing was applied. An ice-pack was applied. The patient tolerated the procedure well. Estimated blood loss was 10 to 15 mL. All sponge, needle and instrument counts were correct. #[id number] [facility]
--- NOTE | 2016-08-27 11:36 | US ---
EXAM DESCRIPTION: Soft Tissue,Head/Neck CLINICAL HISTORY: 81 years Male, mass biopsy COMPARISON: None. FINDINGS: Imaging guidance for right chest wall biopsy was provided for the surgeon. The images show the needle in place within a heterogeneous mass which also appears to have diffuse microcalcifications. IMPRESSION: Malignant appearing mass during needle biopsy right chest wall Electronically signed by: Anjum aPrrish MD 08/27/2016 11:36 AM CDT
--- NOTE | 2016-08-27 11:47 | PN ---
DATE: 08/27/16 SUBJECTIVE: The patient is lying in the bed. He is still not eating or cooperating by swallowing pills or medications at this time. He was cooperative during the core biopsy of the right upper chest mass performed by Dr. Walter. OBJECTIVE: GENERAL: The patient's general condition has failed to improve. Coloration is fairly good. The patient is unable or not willing to partake of nourishment and is currently on IV supplementation at this time. He continues with antibiotic coverage for the urinary tract infection and is currently on sodium bicarbonate solution to assist with the significant renal failure noted on admission. He tolerated the biopsy of the right upper chest wall lesion quite well. This was requested by the family to allow them to know a little bit more about the underlying condition of the patient and how best to approach his ongoing care. LUNGS: Still have significant decreased breath sounds with some rhonchi bilaterally. HEART: Decreased, somewhat distant heart tones also noted. ABDOMEN: Soft. ASSESSMENT: 1. Advanced, enlarging lung mass, right upper lobe with extension through the chest wall to involve the anterior right upper chest wall anteriorly to involve both ribs, sternum and vascularity of the upper chest. Possible squamous cell with hormone effect causing the hypercalcemia, but also consider a kidney carcinoma from a left large renal mass. 2. Severe hypercalcemia, probably secondary to lung cancer with localized bony destruction documented on CT scan versus elevated parahormone level from a squamous cell or a renal cell carcinoma. 3. Diabetes mellitus insulin therapy, adjusting as required. 4. Hyperosmolar state present with hypernatremia, persisting. 5. Moderate dehydration, contributing to the hyperosmolar state with therapy to continue. 6. Acute renal failure with significant BUN and creatinine elevation, slowly improving with intravenous and bicarbonate support. 7. Hypokalemia, requiring supplementation. 8. Hypoxemia with low saturation requiring oxygen supplementation. 9. Possible pneumonia in right upper lobe on parenteral therapy. 10. Urinary tract infection with cultures negative, yet obtained after antibiotics initiated. 11. Leukocytosis, slowly improving. 12. Not eating with significant weight loss, possibly an end-stage severe cancer presentation. 13. Chronic dementia, worsening. 14. History of hyperlipidemia with fatty infiltration, especially involving the skin in the medial aspect of the left eye. PLAN: Social Service is working with the family to consult hospice for ongoing hospice assistance in his care. If the patient does not begin eating and drinking, he will eventually require care and comfort for a significant and overwhelming disease process. #[id number] [facility]
[2016-08-27] MEDS: CLOPIDOGREL 75 MG TAB PO SCH (16:06)
[2016-08-27] MEDS ORDERED: KCL 20MEQ/WATER FOR INJ 100ML 20 MEQ in PREMIX BAG 1 BAG IVPB ONE (18:52)
[2016-08-27] MEDS ORDERED: KCL 20MEQ/WATER FOR INJ 100ML 100 ML IVPB ONE (18:59)
[2016-08-27] MEDS ORDERED: AZITHROMYCIN IV 500 MG VIAL IVPB ONE (20:06)
[2016-08-27] MEDS ORDERED: SODIUM CHLORIDE 0.9% 250ML 0 ML ONE (20:06)
[2016-08-27] MEDS: DONEPEZIL HCL 5 MG TAB PO SCH (21:04)
[2016-08-27] MEDS: MIRTAZAPINE 15 MG TAB PO SCH (21:05)
[2016-08-27] MEDS: AZITHROMYCIN IV 500 MG in SODIUM CHLORIDE 0.9% 250ML 250 ML IVPB SCH (22:22)
[2016-08-27] MEDS: IV SET AND CAP CHANGE INJ INJ SCH (22:23)
[2016-08-28] MEDS ORDERED: DEXTROSE 5% 1000ML 1,000 ML IVS ONE ×2 (00:37→13:21)
[2016-08-28] MEDS ORDERED: SODIUM BICARBONATE VIAL 50 MEQ/50 ML VIAL ONE ×2 (00:38→13:21)
[2016-08-28] MEDS: SODIUM BICARBONATE VIAL 50 MEQ in DEXTROSE 5% 1000ML 1,000 ML IVS PRN ×2 (00:39→13:23)
[2016-08-28] MEDS: LEVOTHYROXINE SODIUM 0.025 MG TAB PO SCH (06:03)
[2016-08-28] MEDS: PANTOPRAZOLE SODIUM TAB 40 MG PO SCH (06:03)
[2016-08-28] MEDS ORDERED: SODIUM CHL 0.9% 50ML MIN-BAG+ 50 ML IVPB ONE ×2 (07:08→19:34)
[2016-08-28] MEDS ORDERED: cefTRIAXone SODIUM 1 GM VIAL ONE ×2 (07:09→19:34)
[2016-08-28] MEDS: INSULIN LISPRO 100 UNITS/ML PEN SUBCU SCH ×4 (07:13→20:55)
[2016-08-28] MEDS: glipiZIDE 5 MG TAB PO SCH ×2 (07:13→16:12)
[2016-08-28] MEDS: cefTRIAXone SODIUM 1 GM in SODIUM CHL 0.9% 50ML MIN-BAG+ 50 ML IVPB SCH ×2 (07:42→19:55)
[2016-08-28] MEDS: SODIUM CHLORIDE 0.9% (FLUSH) 10 ML SYG IV PRN ×4 (07:43→22:21)
[2016-08-28] MEDS: POTASSIUM CHLORIDE 10 MEQ TAB PO SCH ×3 (07:49→16:13)
[2016-08-28] MEDS: IPRATROPIUM/ALBUTEROL 3 ML VIAL NEB SCH ×4 (08:06→19:40)
[2016-08-28] MEDS: HYDROmorphone HCL INJ 2 MG/ML VIAL IV PRN (08:13)
[2016-08-28] MEDS: FUROSEMIDE INJ 20 MG/2 ML VIAL IV SCH ×2 (08:27→16:39)
[2016-08-28] MEDS: INSULIN DETEMIR 100 UNITS/ML PEN SUBCU SCH (08:27)
[2016-08-28] MEDS: SPIRONOLACTONE 25 MG TAB PO SCH (09:31)
[2016-08-28] MEDS: CARVEDILOL 12.5 MG TAB PO SCH ×2 (09:31→20:39)
[2016-08-28] MEDS: POLYETHYLENE GLYCOL 3350 17 GM PCKT PO SCH (09:32)
[2016-08-28] MEDS: LINAGLIPTIN 5 MG TAB PO SCH (09:32)
[2016-08-28] MEDS: predniSONE 10 MG TAB PO SCH (09:32)
[2016-08-28] MEDS: MEMANTINE 10 MG TAB PO SCH ×2 (09:32→20:40)
[2016-08-28] MEDS: ENOXAPARIN SODIUM 30 MG/0.3 ML SYG SUBCU SCH (10:06)
[2016-08-28] MEDS ORDERED: MAGNESIUM SULFATE PREMIX 2GM 2 GM in PREMIX BAG 1 BAG IVPB ONE (14:57)
[2016-08-28] MEDS ORDERED: MAGNESIUM SULFATE PREMIX 2GM 50 ML IVPB ONE (15:00)
[2016-08-28] MEDS: CLOPIDOGREL 75 MG TAB PO SCH (16:21)
[2016-08-28] MEDS ORDERED: POTASSIUM PHOSPHATES IVPB ONE (16:33)
[2016-08-28] MEDS ORDERED: SODIUM CHLORIDE 0.9% IVPB ONE (16:33)
[2016-08-28] MEDS ORDERED: POTASSIUM PHOSPHATES INJ 22 MEQ/5 ML VIAL IVPB ONE (16:46)
[2016-08-28] MEDS ORDERED: SODIUM CHLORIDE 0.9% 250ML 250 ML ONE ×2 (16:48→19:34)
--- NOTE | 2016-08-28 18:36 | PN ---
DATE: 08/28/16 SUPERVISING PHYSICIAN: Miguel Suresh M.D. SUBJECTIVE: The patient is in bed. The patient continues to be less than cooperative in eating or swallowing any of his medications. His is present and has discussed possible moving to hospice care. OBJECTIVE: VITAL SIGNS: Temperature 98.4, pulse 86, blood pressure 92/52, respirations 18, O2 sat 94% on nasal cannula. I's and O's are not measured due to incontinence. Weight is 60.8 kg. GENERAL: The patient continues to show very little improvement and is refusing to eat or drink any significant nutritional input. CHEST: Lungs have decreased breath sounds throughout with some notable rhonchi bilaterally at the apices, decreased towards the posterior aspect. HEART: Regular rate and rhythm. ABDOMEN: Soft, tenderness. Positive bowel sounds. EXTREMITIES: No clubbing, cyanosis or edema. NEUROLOGIC: He is alert to himself, but very lethargic at times. LABORATORY: White count today is somewhat increased to 13.9, hemoglobin 12.4, hematocrit 39.3, platelet count 144,000. Differential continues to show a left shift. Chemistries show sodium 144, potassium is down to 2.8, carbon dioxide 38 , BUN 36, creatinine 1.42, glucose 112 to 163, calcium is down to 11.5, magnesium 1.4 as well as phosphorus 1.4. ASSESSMENT: 1. Advanced enlarging lung mass of the right upper lobe extending to the chest wall involving the anterior right chest wall as well as involving both ribs, sternum and vascularity of the left chest. Questionable bronchogenic tumor of unknown origin with concerns for kidney carcinoma from a left large renal mass with needle biopsy results pending. 2. Severe hypercalcemia likely secondary to lung cancer with localized bony destruction as documented on CT scan versus elevated parahormone level from squamous cell or renal cell carcinoma again with pathology pending. 3. Diabetes mellitus insulin therapy, requiring adjustments. 4. Hyperosmolar state with a normal sodium level likely secondary to underlying dehydration. 5. Moderate dehydration, contributing to the hyperosmolar state. 6. Acute renal failure showing improvement after intravenous fluids and bicarbonate support. 7. Electrolyte imbalance to include hypokalemia, hypomagnesemia and hypophosphatemia likely secondary to number 1 and possible continuation of alkalinization IV therapy requiring supplementation. 8. Hypoxemia with low oxygen saturations requiring ongoing supplementation with questionable underlying pneumonia. 9. Questionable underlying right upper lobe pneumonia on parenteral antibiotic therapy. 10. Urinary tract infection with cultures that were negative which were obtained after antibiotics were initiated. 11. Leukocytosis, persistent, somewhat increased possibly secondary to worsening dehydration. 12. Insufficient nutritional intake with significant weight loss likely secondary to his end stage carcinoma as noted in number 1. 13. Chronic dementia, worsening. 14. History of hyperlipidemia with fatty infiltration, especially involving the skin in the upper medial aspect of the left eye. PLAN: Discussed with the patient's today and we have consulted with Deirdre. Will continue with current plan of care. Replace potassium, magnesium and phosphorus as needed until further discussions on further care regarding hospice care. He will continue on parenteral antibiotics until we have results back from the pathology report. I will stop the sodium bicarb today and utilize potassium phosphate along with additional normal saline replacement to help with dehydration as well as providing potassium replacement. Will plan to reevaluate in the morning in regards to his laboratory studies. Will encourage again nutritional intake and utilize Thick- It liquid thickener to assist with possible encouragement of additional fluids with the assistance of his . Until reevaluation and repeat laboratory studies, will continue to monitor the patient closely and anticipate possible discharge in the near future to hospice care to return back to [facility]. Until then, will continue to monitor the patient closely and treat appropriately. #[id number] [facility]
[2016-08-28] MEDS ORDERED: AZITHROMYCIN IV 500 MG VIAL IVPB ONE (19:34)
[2016-08-28] MEDS: DONEPEZIL HCL 5 MG TAB PO SCH (20:39)
[2016-08-28] MEDS: MIRTAZAPINE 15 MG TAB PO SCH (20:40)
[2016-08-28] MEDS: AZITHROMYCIN IV 500 MG in SODIUM CHLORIDE 0.9% 250ML 250 ML IVPB SCH (22:21)
[2016-08-29] MEDS ORDERED: KCL 20MEQ/0.45% NS 1,000 ML IVS PRN (01:22)
[2016-08-29] MEDS: SODIUM CHLORIDE 0.9% (FLUSH) 10 ML SYG IV PRN (03:23)
[2016-08-29] MEDS: LEVOTHYROXINE SODIUM 0.025 MG TAB PO SCH (06:19)
[2016-08-29] MEDS: PANTOPRAZOLE SODIUM TAB 40 MG PO SCH (06:19)
[2016-08-29] MEDS: INSULIN LISPRO 100 UNITS/ML PEN SUBCU SCH ×4 (07:39→20:52)
[2016-08-29] MEDS ORDERED: SODIUM CHL 0.9% 50ML MIN-BAG+ 50 ML IVPB ONE ×2 (07:40→19:42)
[2016-08-29] MEDS ORDERED: cefTRIAXone SODIUM 1 GM VIAL ONE ×2 (07:41→19:42)
[2016-08-29] MEDS: glipiZIDE 5 MG TAB PO SCH ×2 (07:47→17:44)
[2016-08-29] MEDS: POTASSIUM CHLORIDE 10 MEQ TAB PO SCH ×3 (07:48→17:50)
[2016-08-29] MEDS: cefTRIAXone SODIUM 1 GM in SODIUM CHL 0.9% 50ML MIN-BAG+ 50 ML IVPB SCH ×2 (07:50→19:55)
[2016-08-29] MEDS: IPRATROPIUM/ALBUTEROL 3 ML VIAL NEB SCH ×4 (08:00→20:26)
[2016-08-29] MEDS: HYDROmorphone HCL INJ 2 MG/ML VIAL IV PRN (08:15)
[2016-08-29] MEDS ORDERED: SODIUM CHLORIDE 0.9% IVPB ONE (08:16)
[2016-08-29] MEDS ORDERED: POTASSIUM PHOSPHATES IVPB ONE (08:16)
[2016-08-29] MEDS ORDERED: SODIUM CHLORIDE 0.9% 250ML 250 ML ONE ×3 (08:47→21:36)
[2016-08-29] MEDS ORDERED: POTASSIUM PHOSPHATES INJ 22 MEQ/5 ML VIAL IVPB ONE (08:48)
[2016-08-29] MEDS: MEMANTINE 10 MG TAB PO SCH ×2 (08:53→20:44)
[2016-08-29] MEDS: POLYETHYLENE GLYCOL 3350 17 GM PCKT PO SCH (08:53)
[2016-08-29] MEDS: CARVEDILOL 12.5 MG TAB PO SCH ×2 (08:53→20:43)
[2016-08-29] MEDS: predniSONE 10 MG TAB PO SCH (08:53)
[2016-08-29] MEDS: LINAGLIPTIN 5 MG TAB PO SCH (08:54)
[2016-08-29] MEDS: FUROSEMIDE INJ 20 MG/2 ML VIAL IV SCH ×2 (09:02→18:18)
[2016-08-29] MEDS: ENOXAPARIN SODIUM 30 MG/0.3 ML SYG SUBCU SCH (09:02)
[2016-08-29] MEDS: INSULIN DETEMIR 100 UNITS/ML PEN SUBCU SCH (10:20)
--- NOTE | 2016-08-29 16:49 | PN ---
DATE: 08/29/16 SUPERVISING PHYSICIAN: Miguel Suresh M.D. SUBJECTIVE: The patient is in no acute distress. He still is not wanting to eat or drink much, but is again encouraged to do so as much as possible. He remains afebrile. The patient is showing a little improvement and is very obtunded at times. OBJECTIVE: VITAL SIGNS: T max 99.9, pulse 66, blood pressure 108/69, respirations 18, O2 sat showing 97% on 2 liters nasal cannula. I's and O's are again immeasurable due to the patient being incontinent. His last bowel movement was on 08/26/16. GENERAL: The patient is very slow to respond. Still refuses to eat much of any nutritional amounts. CHEST: Lungs have decreased breath sounds throughout with no obvious rhonchi or rales today. HEART: Regular rate and rhythm. ABDOMEN: Soft, non-tender. Positive bowel sounds. EXTREMITIES: No clubbing, cyanosis or edema. NEUROLOGIC: He is alert to himself , but very lethargic at times, but interacts with his . LABORATORY: White count has improved today. Hemoglobin and hematocrit are stable at 12.0 and 36.8, platelet count 160,000. Differential does continue to show a left shift. Electrolytes today show low potassium continued at 2.7, sodium is elevated at 147, carbon dioxide 38, BUN 26, creatinine 1.29, glucose has been 78 to 127. Serum osmolality 296. Calcium is down to 11.0, phosphorus is up to 1.9, magnesium now is normalized to 1.8. MICROBIOLOGY: Final urine culture showed no growth. MRSA surveillance culture at 72 hours showed no growth. Anaerobic blood cultures times 2 shows no growth at 4 days. Additional catheterized urinary culture showed no growth at 48 hours. ASSESSMENT: 1. Advanced enlarging lung mass to the right upper lobe extending to the chest wall involving the anterior chest wall as well as involving both ribs, sternum and vascularity of the left chest. Questionable bronchogenic tumor of unknown origin with concerns for kidney carcinoma from a left large renal mass with needle biopsy results still pending. 2. Severe hypercalcemia likely secondary to underlying lung cancer with localized bony destruction as documented on CT scan versus elevated parahormone levels from squamous cell or renal cell carcinoma again with pathology pending. 3. Diabetes mellitus insulin therapy, requiring adjustments. 4. Hyperosmolar state continued with sodium now being elevated secondary to dehydration. 5. Moderate dehydration, contributing to number 4. 6. Acute renal failure showing improvement after intravenous fluids and previous bicarbonate infusions. 7. Electrolyte imbalance to include hypokalemia, hypomagnesemia that has resolved and continued hypophosphatemia all likely secondary to number 1 and possible continuation of previous alkalinization IV therapy which has been since stopped. 8. Hypoxemia with low oxygen saturations requiring ongoing supplementation with questionable underlying pneumonia. 9. Questionable underlying right upper lobe pneumonia on parenteral antibiotics. 10. Urinary tract infection although cultures are all negative with cultures having been obtained after antibiotics were initiated. 11. Leukocytosis, improving likely secondary to worsening dehydration and number 1. 12. Chronic dementia, worsening. 13. Insufficient nutritional intake with significant weight loss likely secondary to his end stage carcinoma as noted in number 1. 14. History of hyperlipidemia with fatty infiltration, especially involving the skin in the upper medial aspect of the left eye. PLAN: The patient has shown some improvement in regards to his laboratory studies. He got potassium phosphate and magnesium along with IV fluids. He continues to be somewhat dehydrated and is showing a free water deficit approximately 1.5 liters. Will start him on IV therapy for hydration with D5W with 20 of potassium to assist with nutritional status to prevent a fasting state and continue with potassium replacement. I will await the pathology report and Dr. Walter's findings. Again discussed the patient's ultimate discharge most likely to hospice at some point. Until discharge, will continue to monitor the patient closely and plan to reevaluate in the morning again with laboratory studies and ultimately hopefully discharge the patient to hospice care back to [facility]. If the patient's is unable to commit the patient to hospice care for care and comfort measures, certainly will need to consider nutritional replacement either nasogastric tube or other methods. I did discuss this with the and she is not wanting to do this at this time, and feels like most likely she will make a decision that ultimately discharge will be the change of care to hospice with [facility]. Until then, will continue to monitor the patient and treat appropriately. #[id number] [facility]
[2016-08-29] MEDS: CLOPIDOGREL 75 MG TAB PO SCH (17:52)
[2016-08-29] MEDS: KCL 20MEQ/D5W 1,000 ML IVS PRN (18:23)
[2016-08-29] MEDS ORDERED: AZITHROMYCIN IV 500 MG VIAL IVPB ONE (19:44)
[2016-08-29] MEDS: DONEPEZIL HCL 5 MG TAB PO SCH (20:43)
[2016-08-29] MEDS: MIRTAZAPINE 15 MG TAB PO SCH (20:44)
[2016-08-29] MEDS: AZITHROMYCIN IV 500 MG in SODIUM CHLORIDE 0.9% 250ML 250 ML IVPB SCH (22:05)
[2016-08-30] MEDS: LEVOTHYROXINE SODIUM 0.025 MG TAB PO SCH (06:02)
[2016-08-30] MEDS: PANTOPRAZOLE SODIUM TAB 40 MG PO SCH (06:02)
[2016-08-30] MEDS ORDERED: cefTRIAXone SODIUM 1 GM VIAL ONE (07:21)
[2016-08-30] MEDS ORDERED: SODIUM CHL 0.9% 50ML MIN-BAG+ 50 ML IVPB ONE (07:21)
[2016-08-30] MEDS: POTASSIUM CHLORIDE 10 MEQ TAB PO SCH ×2 (07:44→13:18)
[2016-08-30] MEDS: glipiZIDE 5 MG TAB PO SCH (07:44)
[2016-08-30] MEDS: cefTRIAXone SODIUM 1 GM in SODIUM CHL 0.9% 50ML MIN-BAG+ 50 ML IVPB SCH (07:45)
[2016-08-30] MEDS: IPRATROPIUM/ALBUTEROL 3 ML VIAL NEB SCH ×2 (08:13→12:57)
[2016-08-30] MEDS: INSULIN LISPRO 100 UNITS/ML PEN SUBCU SCH ×2 (08:14→13:18)
[2016-08-30] MEDS: FUROSEMIDE INJ 20 MG/2 ML VIAL IV SCH ×2 (09:31→10:01)
[2016-08-30] MEDS: INSULIN DETEMIR 100 UNITS/ML PEN SUBCU SCH (09:31)
[2016-08-30] MEDS: CARVEDILOL 12.5 MG TAB PO SCH (09:33)
[2016-08-30] MEDS: ENOXAPARIN SODIUM 30 MG/0.3 ML SYG SUBCU SCH (09:33)
[2016-08-30] MEDS: POLYETHYLENE GLYCOL 3350 17 GM PCKT PO SCH (09:33)
[2016-08-30] MEDS: predniSONE 10 MG TAB PO SCH (09:33)
[2016-08-30] MEDS: MEMANTINE 10 MG TAB PO SCH (09:33)
[2016-08-30] MEDS: LINAGLIPTIN 5 MG TAB PO SCH (09:33)
[2016-08-30 09:42] VITALS: O2SAT 94
[2016-08-30] MEDS: KCL 20MEQ/D5W 1,000 ML IVS PRN (09:51)
[2016-08-30 15:21] VITALS: BP 100/50; TEMP 97.5
--- NOTE | 2016-09-02 08:45 | DS ---
SUPERVISING PHYSICIAN: Navid Marino MD DISCHARGE DIAGNOSIS: 1. Advanced lung mass of the right upper lobe extending to the chest wall involving the anterior chest wall as well as involving both ribs, sternum and vascularity of the left chest. Pathology report shows it to be a squamous cell carcinoma. 2. 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 3. Diabetes mellitus on insulin therapy, requiring adjustments. 4. Hyperosmolar state, continued with sodium being elevated secondary to dehydration. 5. Moderate dehydration, contributing to #4. 6. Acute renal failure, showing slight improvement after intravenous fluids and previous bicarbonate infusions for alkalinization. 7. Electrolyte imbalance to include hypokalemia, hypomagnesemia that has resolved with continued hypophosphatemia, likely secondary to #1 and possibly continuation of previous alkalinization IV therapy. 8. Hypoxemia with low oxygen saturations requiring ongoing supplementation with questionable underlying pneumonia unable to ruled out secondary to a large lung cancer mass on the right side. 9. Questionable underlying right upper lobe pneumonia with the patient being on parenteral antibiotics, again, unable to rule out secondary to lung cancer. 10. Urinary tract infection, although cultures are all negative with cultures having been obtained after antibiotics were initiated. 11. Leukocytosis, improved, likely secondary to dehydration and #1. 12. Chronic dementia, worsening. 13. 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 14. History of hyperlipidemia with fatty infiltration, especially involving the skin in the upper medial aspect of the left eye. 15. Admission to hospice care for advanced lung cancer. HISTORY OF PRESENT ILLNESS: Mr. Lauren is an 81-year-old, male patient admitted to the hospital from [facility] where he has been a resident for a number of years. He presented to the Emergency Room with significant shortness of breath having been brought by EMS from the alf. He had increasing shortness of breath, cough over the several days prior to admission. His family is active in assisting with his ongoing care. In the Emergency Room, he was found to have what appeared to be an enlarging mass in the right upper lobe of his lung which the family requests nothing specifically be done for. The patient's general condition, ability to eat, drink, communicate, walk and care for himself has significantly been decreasing over the last several weeks and months. At the time of his presentation, the patient was not able to communicate. His family also was not present at the time of the initial intake for his history and physical and was admitted for stabilization and ongoing treatment for a significant illness. He was admitted with Do Not Resuscitate in place as the family has voiced a wish for possible hospice intervention to assist with the ongoing care. In the Emergency Room, he was found to have also a urinary tract infection with very elevated white count of 19,000 with elevated calcium, hyperosmolar state and with a right upper lobe lung mass. The patient has chronic diabetes on Levemir insulin. LABORATORY: White count initially on admission was 18.9. At time of discharge , it had decreased to 10.9. Hemoglobin and hematocrit initially on admission were 16.3 and 50.9. After therapy at discharge, they were 12.0 and 36.8. Platelet count remained within normal limits at 163,000. Differential did show a left shift. Chemistries on admission showed sodium 153, after therapy and treatment and prior to discharge, it had normalized on the high end of normal at 147. Potassium was low on admission at 3.9, however, after IV therapy to correct dehydration, his potassium dropped to a low of 2.6 and even therapy and replacement, potassium at discharge was 2.7. BUN elevated from 97 to 103 max during admission, but at time of discharge after alkalinization and IV fluids, it was 26. Creatinine was 2.6 on admission and at time of discharge was 1.29. Glucoses remained fairly elevated, but stable between 87 to 180. Lactic acid on admission was 2.9. Calcium was elevated and initially was 16.5. After therapy and treatment, at time of discharge, it had decreased to 11.0, near normal limits. Initial serum osmolality on admission was extremely elevated at 336. After therapy and IV fluids, at time of discharge, it had decreased, but was still on the high end of normal at 296. Phosphorous level was initially elevated on admission at 5.3, decreased to a minimum of 1.4 and showed improvement after therapy to 1.9 before discharge. Magnesium initially was normal at 2.4, dropped to 1.4 and after treatment had normalized prior to discharge at 1.8. He did have an elevated bilirubin on admission, but after fluids had normalized to 0.9. BNP was elevated at 190. Urinalysis initially showed moderate amount of blood, small amount of bilirubin, large amount of leukocyte esterase with obscured RBCs on dipstick, too numerous to count WBCs, as well as obscured bacteria by WBCs. After treatment, initiating fluids on day after initial treatment started, repeat urinalysis showed 1+ bacteria, 45 to 50 WBCs, with small amount of leukocyte esterase on dipstick. MICROBIOLOGY: Two urine cultures both showed no growth at 48 hours. MRSA surveillance culture showed no growth at 72 hours. Two sets of blood cultures showed no growth at 5 days. RADIOLOGY: Initial chest x-ray which per radiology interpretation showed a large mass density of the right upper lobe as well as cardiomegaly. Please refer to those reports for full details. CT of the chest was completed and per radiology interpretation, there was note of a large, aggressive appearing soft tissue mass involving the anterior right upper lobe and invading the chest wall with destruction of most of the right first rib and portions of the anterior right second rib, sternum, and medial right clavicle. Please refer to that report for full details. He also had a soft tissue ultrasound during needle biopsy to assist with placement of needle and of note was malignant appearing mass during needle biopsy of the chest wall. No other chest x-rays were completed. PROCEDURES: Dr. Walter did a fine needle biopsy of the mass. Preliminary pathology at time of discharge showed a squamous cell carcinoma of the lung. Please refer to that note for full details as well as Dr. Walter's operative notes. HOSPITAL COURSE: As noted in history of present illness, Mr. Lauren was admitted from [facility] for enlarging mass in the right upper lobe with shortness of breath. His prognosis was poor. He did have a needle biopsy of the chest and ultimately showed a squamous cell carcinoma of the lung. He did remain fairly stable, but was showing poor nutritional intake. He was given IV fluids with improvement in his renal function and his calcium was normalized by time of discharge. However, the patient continued to be minimally responsive and after long discussions with the family, once the biopsy reports were available, the family wished to change the patient to hospice care and return back to [facility]. PLAN: The patient is discharged under the care of hospice with [facility]. He is to return back to [facility]. They were to resume his home medications and continue with comfort care measures as per hospice orders. Dr. Camacho was to see the patient in followup as needed. The patient's condition at time of discharge was poor, prognosis grim. 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 The patient was transferred back to [facility] with family accompanying. #[id number] [facility]
== END 2016-08-30 15:05 | DRG 682 ==
LOC: ER 18:08 → MS 21:01 → OBSVTOIN 21:01
PROVIDERS: ADMIT Emergency Medicine; ATTEND Nurse Practitioner Family
PROC: 0WB83ZX Excision of Chest Wall, Percutaneous Approach, Diagnostic (ICD-10-PCS; principal; 2016-08-26)
DX: N17.9 Acute kidney failure, unspecified (principal); E41 Nutritional marasmus; E11.00 Type 2 diabetes mellitus with hyperosmolarity without nonketotic hyperglycemic-hyperosmolar coma (NKHHC); N39.0 Urinary tract infection, site not specified; C34.11 Malignant neoplasm of upper lobe, right bronchus or lung; E87.2 Acidosis; Z68.1 Body mass index [BMI] 19.9 or less, adult; E83.52 Hypercalcemia; E83.42 Hypomagnesemia; E83.39 Other disorders of phosphorus metabolism; R91.8 Other nonspecific abnormal finding of lung field; E86.0 Dehydration; N28.9 Disorder of kidney and ureter, unspecified; E87.6 Hypokalemia; R09.02 Hypoxemia; F03.90 Unspecified dementia, unspecified severity, without behavioral disturbance, psychotic disturbance, mood disturbance, and anxiety; K21.9 Gastro-esophageal reflux disease without esophagitis; E78.5 Hyperlipidemia, unspecified; Z66 Do not resuscitate; I25.2 Old myocardial infarction; Z79.4 Long term (current) use of insulin; Z87.891 Personal history of nicotine dependence; Z79.899 Other long term (current) drug therapy